=== PATIENT | male | born 1940 | race African-American/Black ===

== ENCOUNTER 2024-02-06 09:28 | Emergency (ER) | payer MEDICARE, BC ==
[~2024-02-06] VITALS: Ht 185.4 cm; Wt 118.0 kg
[2024-02-06 09:32] VITALS: O2SAT 99
[2024-02-06 11:14] VITALS: BP 134/76; PULSE 79; RESP 18; TEMP 98.7
== END 2024-02-06 11:15 | disposition home or self-care (01) ==
LOC: ER 09:28
DX: K11.5 Sialolithiasis (principal); R09.A2 Foreign body sensation, throat; E11.9 Type 2 diabetes mellitus without complications; I49.9 Cardiac arrhythmia, unspecified
CPT/HCPCS: 70360; 71045; 93005; 99284